=== PATIENT | male | born 1975 | race Caucasian/White ===

== ENCOUNTER 2017-04-11 22:49 | Emergency (ER) | payer SELFPAY ==
[2017-04-12 01:44] LABS: APPEARANCE,URINE CLEAR; BILIRUBIN,URINE NEGATIVE (NEGATIVE); GLUCOSE, URINE NEGATIVE (NEGATIVE); KETONES,URINE NEGATIVE (NEGATIVE); LEUKOCYTE ESTERASE,URINE NEGATIVE (NEGATIVE); NITRITE,URINE NEGATIVE (NEGATIVE); PROTEIN,URINE NEGATIVE (NEGATIVE); URINE SPECIFIC GRAVITY 1.006; UROBILINOGEN,URINE NEGATIVE mg/dL (<2.0)
[2017-04-12 01:45] LABS: ABSOLUTE EOSINOPHILS # (AUTO) 0.7 10^3/uL (0.0-0.6); ABSOLUTE LYMPHOCYTES (AUTO) 2.7 10^3/uL (0.5-4.7); ABSOLUTE MONOCYTES (AUTO) 0.8 10^3/uL (0.1-1.4); ABSOLUTE NEUT (AUTO) 6.1 10^3/uL (1.7-8.2); BASOPHILS % (AUTO) 0.3 % (0-2); EOSINOPHILS % (AUTO) 6.9 % (0-6); HEMOGLOBIN 15.4 g/dL (13.5-17.0); HGB HCT DIFFERENCE 1.2; LYMPHOCYTES % (AUTO) 26.1 % (13-45); MEAN CORPUSCULAR HGB CONC 34.1 g/dL (32.0-36.0); MEAN CORPUSCULAR VOLUME 88 fl (80-97); MONOCYTES % (AUTO) 7.9 % (3-13); RED BLOOD COUNT 5.12 10^6/uL (4.35-5.55); RED CELL DISTRIBUTION WIDTH 13.3 % (11.5-14.0); SEGMENTED NEUTROPHILS % (AUTO) 58.8 % (42-78); WHITE BLOOD COUNT 10.3 10^3/uL (4.0-10.5)
[2017-04-12 01:56] LABS: ALANINE AMINOTRANSFERASE 26 U/L (21-72); ALBUMIN 4.2 g/dL (3.5-5.0); ALKALINE PHOSPHATASE 89 U/L (38-126); ANION GAP 12 (5-19); ASPARTATE AMINO TRANSFERASE 18 U/L (17-59); BILIRUBIN,DIRECT 0.3 mg/dL (0.0-0.4); BILIRUBIN,TOTAL 0.5 mg/dL (0.2-1.3); BLOOD UREA NITROGEN 12 mg/dL (7-20); CALCIUM 9.4 mg/dL (8.4-10.2); CARBON DIOXIDE 26 mmol/L (22-30); CHLORIDE 104 mmol/L (98-107); CREATININE RESULT 0.93 mg/dL (0.52-1.25); GLUCOSE 118 mg/dL (75-110); POTASSIUM 3.8 mmol/L (3.6-5.0); SODIUM 141.7 mmol/L (137-145); TOTAL PROTEIN 6.8 g/dL (6.3-8.2)
[2017-04-12 02:04] LABS: ALCOHOL < 10 mg/dL (NONE DETECTED)
--- NOTE | 2017-04-12 02:33 | ER Document Report ---
ED General - General Chief Complaint: Drug Abuse Stated Complaint: POSSIBLE SUBSTANCE ABUSE Time Seen by Provider: 04/12/17 02:30 Mode of Arrival: Ambulatory Information source: Patient, Friend TRAVEL OUTSIDE OF THE [place] IN LAST 30 DAYS: No - HPI Notes: Patient here with significant other at bedside;patient says he is here because he has been and addict for 30 years and " I want to get off dope"; says he wants detox from cocaine; says he snorts, shoots and smokes it; says his last use was this am; says he also smokes marijuana and drinks etoh; says his last drink was approx 3 hours ago; says he wants detox; denies n/v/d/f; denies feeling shaky of having feeling of withdrawal. says he has been through detox x1 many years ago. hx of heroine use in the past as well. patient is calm, cooperative, good eye contact; speech is clear and gait steady; no tremors noted. Patient states he has been to Narcotics Anonymous back in October of this year. Patient reports he has been in correction multiple times for robbery, drug use possibly to a total of approximately 15 years of his life being incarcerated. Patient states that he is from his for the last 3 months. The is with him currently. The patient reports he is depressed and is contemplating suicide by hanging himself similar to the way his brother hung himself 3 years ago. The patient also reports homicidal ideation towards "people who have pissed him off" without giving specifics or names. - Related Data Allergies/Adverse Reactions: No Known Allergies Allergy (Verified 04/15/14 03:12) Past Medical History - General Information source: Patient - Social History Smoking Status: Current Every Day Smoker Smoking Education Provided: Yes Frequency of alcohol use: Occasional Drug Abuse: Cocaine, Heroin, Marijuana Lives with: Alone Family History: None Renal/ Medical History: Denies: Hx Peritoneal Dialysis - Immunizations Hx Diphtheria, Pertussis, Tetanus Vaccination: Yes Review of Systems - Review of Systems Notes: REVIEW OF SYSTEMS: CONSTITUTIONAL : Denies fever, chills, or sweats. Denies recent illness. EENT: Denies eye, ear, throat, or mouth pain or symptoms. Denies nasal or sinus congestion or discharge. Denies throat, tongue, or mouth swelling or difficulty swallowing. CARDIOVASCULAR: Denies chest pain. Denies palpitations or racing or irregular heart beat. Denies ankle edema. RESPIRATORY: Denies shortness of breath, difficulty breathing, or wheezing. Patient reports chronic cough and congestion nonproductive. GASTROINTESTINAL: Denies abdominal pain or distention. Denies nausea, vomiting , or diarrhea. Denies blood in vomitus, stools, or per rectum. Denies black, tarry stools. Denies constipation. GENITOURINARY: Denies difficulty urinating, painful urination, burning, frequency, blood in urine, or discharge. MUSCULOSKELETAL: Denies back or neck pain or stiffness. Denies joint pain or swelling. SKIN: Denies rash, lesions or sores. HEMATOLOGIC : Denies easy bruising or bleeding. LYMPHATIC: Denies swollen, enlarged glands. NEUROLOGICAL: Denies confusion or altered mental status. Denies passing out or loss of consciousness. Denies dizziness or lightheadedness. Denies headache. Denies weakness or paralysis or loss of use of either side. Denies problems with gait or speech. Denies sensory loss, numbness, or tingling. Denies seizures. PSYCHIATRIC: No hallucinations. ALL OTHER SYSTEMS REVIEWED AND NEGATIVE. Dictation was performed using [employer] voice recognition software Physical Exam - Notes Notes: PHYSICAL EXAMINATION: GENERAL: Well-appearing, well-nourished and in no acute distress. HEAD: Atraumatic, normocephalic. EYES: Pupils equal round and reactive to light, extraocular movements intact, sclera anicteric, conjunctiva are normal. ENT: Nares patent, oropharynx clear without exudates. Moist mucous membranes. Membranes clear NECK: Normal range of motion, supple without lymphadenopathy LUNGS: Coarse breath sounds noted with scant expiratory wheeze. HEART: Regular rate and rhythm without murmurs ABDOMEN: Soft, nontender, nondistended abdomen. No guarding, no rebound. No masses appreciated. Musculoskeletal: Normal range of motion, no pitting or edema. No cyanosis. NEUROLOGICAL: Cranial nerves grossly intact. Normal speech, normal gait. Normal sensory, motor exams PSYCH: Affect is flat. Patient reports symptoms of depression and suicidal ideation threatening to hang himself. Patient also has loose homicidal ideation. SKIN: Warm, Dry, normal turgor, no rashes or lesions noted. Course - Re-evaluation Re-evalutation: 04/12/17 06:39 Patient was medically cleared for psychiatric evaluation. He was given 1 mg of Ativan. Patient was noted to be wheezing on exam. With this chronic history of smoking, COPD was suspected. Patient was given an albuterol metered-dose inhaler. After being instructed in using the inhaler, repeat exam showed no wheezing. 04/12/17 06:40 - Laboratory Result Diagrams: 04/12/17 01:22 04/12/17 01:22 Laboratory results interpreted by me: 04/12/17 04/12/17 01:22 01:22 Eosinophils % 6.9 H Absolute Eosinophils 0.7 H Glucose 118 H Salicylates < 1.0 L Acetaminophen < 10 L - EKG Interpretation by Ca EKG shows normal: Sinus rhythm Rate: Normal Rhythm: NSR Additional EKG results interpreted by me: 04/12/17 06:40 EKG as interpreted by nc showed normal sinus rhythm heart rate of 85. There was no gross evidence for acute NE or ischemia identified. No other abnormality noted. Discharge - Discharge Clinical Impression: Polysubstance abuse, Tobacco abuse COPD (chronic obstructive pulmonary disease) Qualifiers: COPD type: unspecified COPD Qualified Code(s): J44.9 - Chronic obstructive pulmonary disease, unspecified Depression Qualifiers: Depression Type: unspecified Qualified Code(s): F32.9 - Major depressive disorder, single episode, unspecified Prescriptions: Lorazepam [Ativan 1 mg Tablet] 1 mg PO Q8HP PRN #10 tablet PRN Reason: Anxiety Albuterol Sulfate [Proair HFA Inhalation Aerosol 8.5 gm MDI] 2 puff IH Q4H PRN # 1 mdi PRN Reason:
[2017-04-12] MEDS ORDERED: LORAZEPAM 1 MG TABLET PO ONE (02:57)
[2017-04-12 03:02] LABS: URINE BARBITURATES SCREEN NEGATIVE; URINE METHADONE SCREEN NEGATIVE; URINE OPIATES LOW NEGATIVE; URINE PHENCYCLIDINE SCREEN NEGATIVE
[2017-04-12] MEDS: ALBUTEROL SULFATE HFA (90 MCG/PUFF) 8 GM MDI (1 MDI/ER DISP) IH PRN ×2 (03:15→10:00)
--- NOTE | 2017-04-12 03:55 | RADIOLOGY REPORT (SQ) ---
EXAM DESCRIPTION: CHEST PA/LAT COMPLETED DATE/TIME: 04/12/2017 3:37 am REASON FOR STUDY: cough, wheezing COMPARISON: None. EXAM PARAMETERS: NUMBER OF VIEWS: two views TECHNIQUE: Digital Frontal and Lateral radiographic views of the chest acquired. RADIATION DOSE: NA LIMITATIONS: none FINDINGS: LUNGS AND PLEURA: No opacities, masses or pneumothorax. No pleural effusion. MEDIASTINUM AND HILAR STRUCTURES: No masses or contour abnormalities. HEART AND VASCULAR STRUCTURES: Heart normal size. No evidence for failure. BONES: No acute findings. HARDWARE: None in the chest. OTHER: No other significant finding. IMPRESSION: NO SIGNIFICANT RADIOGRAPHIC FINDING IN THE CHEST. TECHNICAL DOCUMENTATION: JOB ID: [id number] [employer]- All Rights Reserved
--- NOTE | 2017-04-12 09:30 | PSYCHOLOGICAL NOTE ---
Psych Note - Psych Note Psych Note: 41-year-old male is here for help with drug addiction. No complaints this a.m. He is sleeping next to his significant other. He awakes easily and denies any concerns at this time. Heart-lung and skin exam are unremarkable.
--- NOTE | 2017-04-12 12:03 | EKG REPORT ---
SEVERITY:- NORMAL ECG - SINUS RHYTHM : Confirmed by: Gladys Peace MD 12-Apr-2017 12:02:44
--- NOTE | 2017-04-12 12:49 | ER Document Report ---
ED Psych Disorder / Suicide - General Mode of Arrival: Ambulatory Information source: Patient, Relative - signifiant other TRAVEL OUTSIDE OF THE [place] IN LAST 30 DAYS: No - HPI Patient complains to provider of: Aggression, Homicidal ideation, Suicidal ideation, Other - substance abuse; cocaine Normal mood: Yes Associated symptoms: Normal affect, Normal mood <ROSE WEAVER - Last Filed: 04/12/17 12:19> <ANTONELLA YI - Last Filed: 04/12/17 13:12> - General Chief Complaint: Drug Abuse Stated Complaint: POSSIBLE SUBSTANCE ABUSE Time Seen by Provider: 04/12/17 02:30 - HPI Notes: Patient here with significant other at bedside;patient says he is here because he has been and addict for 30 years and " I want to get off dope"; says he wants detox from cocaine; says he snorts, shoots and smokes it; says his last use was this am; says he also smokes marijuana and drinks etoh; says his last drink was approx 3 hours ago; says he wants detox Patient's , Vicenta, states patient has long history of substance abuse and the only time he was sober was when he was in penitentiary for a year. She continued to disclose patient has frequent thoughts of suicide and his anger is "off the charts." Patient states he would like to get help with his substance abuse. He disclose that he dies have thoughts of suicide and homicide that comes and goes. Patient states he does not have access to means because he is a convicted felon. Patient continued to disclose that he agrees inpatient substance abuse treatment might be better than outpatient. Patient is alert and orientated to person, place, time and circumstance. Patient denies current suicidal/homicidal ideation; patient endorses thoughts that come and go. Patient has abused cocaine for 30 years. Patient denies auditory and visual hallucinations; patient is not demonstrating any behaviour congruent with responding to internal stimuli. No delusions are noted. Thought process is organized and linear. Eye contact was well maintained. Intellectual abilities appear to be average range. attention and concentration are good. Insight, judgement, and impulse control are fair. 304.20 (F14.20) Cocaine abuse; severe Impression/plan: Patient is recommended for rescind of IVC and is considered psychiatrically cleared for discharge. Patient does not meet IVC criteria per [place] GS 122C. Patient has substance abuse going back 30 years and he would like assistance. Clinician provided patient and patient with substance abuse resources. Patient is recommended to receive services for substance abuse. Dr. Parsons was consulted on the care and management of this patient; attending physician is in agreement with recommendation and disposition. (ROSE WEAVER) - Related Data Allergies/Adverse Reactions: No Known Allergies Allergy (Verified 04/15/14 03:12) Past Medical History - General Information source: Patient - Social History Smoking Status: Current Every Day Smoker Frequency of alcohol use: Occasional Drug Abuse: Cocaine Lives with: Alone Family History: None Renal/ Medical History: Denies: Hx Peritoneal Dialysis - Immunizations Hx Diphtheria, Pertussis, Tetanus Vaccination: Yes <ROSE WEAVER - Last Filed: 04/12/17 12:19> Course - Laboratory Result Diagrams: 04/12/17 01:22 04/12/17 01:22 <ROSE WEAVER - Last Filed: 04/12/17 12:19> - Laboratory Result Diagrams: 04/12/17 01:22 04/12/17 01:22 <ANTONELLA YI - Last Filed: 04/12/17 13:12> - Re-evaluation Re-evalutation: 04/12/17 13:11 I reviewed patient's note from psychiatry. I agree with their assessment and plan. Of note patient has a prescription for Ativan on the chart but after further discussion with the patient he and psychiatry of decided that this will not be necessary. (ANTONELLA YI) - Vital Signs Vital signs: Temp Pulse Resp BP Pulse Ox 98.3 F 79 18 139/80 H 98 04/12/17 06:43 04/12/17 06:43 04/12/17 06:43 04/12/17 06:43 04/12/17 06:43 - Laboratory Laboratory results interpreted by me: 04/12/17 04/12/17 01:22 01:22 Eosinophils % 6.9 H Absolute Eosinophils 0.7 H Glucose 118 H Salicylates < 1.0 L Acetaminophen < 10 L Discharge <ROSE WEAVER - Last Filed: 04/12/17 12:19> <ANTONELLA YI - Last Filed: 04/12/17 13:12> - Discharge Clinical Impression: Polysubstance abuse, Tobacco abuse, Antisocial behavior COPD (chronic obstructive pulmonary disease) Qualifiers: COPD type: unspecified COPD Qualified Code(s): J44.9 - Chronic obstructive pulmonary disease, unspecified Clinical Impression: (Ruled Out): Depression Condition: Stable Disposition: HOME, SELF-CARE Additional Instructions: Cocaine Abuse Cocaine causes many dangerous medical problems. Problems can occur even with "usual" amounts. Cocaine affects judgement, creating a sense of invulnerability. Cocaine users often make bad decisions that seem "great" at the time. Most cocaine users eventually will be hurt by bad job performance, damaged personal relations, crime, and unsafe sexual practices. Toxic effects of cocaine can include seizures, hallucinations, delusions, high blood pressure, heart damage, or sudden . There's always the risk of a "bad batch." But heart attacks, brain hemorrhages, or cardiac arrest can occur unpredictably even with "normal" use. Injection of cocaine is risky for abscesses, endocarditis (heart infection) , pneumonia, and AIDS. Withdrawal from cocaine often causes anxiety and drug cravings. Some users become paranoid and psychotic. Many treatment programs are available, but you must make the decision to quit. Medication can be prescribed to control the symptoms of cocaine toxicity (beta blockers or benzodiazepines). Withdrawal symptoms may require tranquilizers. DEPRESSION: Your evaluation reveals that you have mental depression. While symptoms may be vague, they often include disturbance of sleep, fatigue, loss of appetite , and general loss of interest in life. While depression may be a side effect of drugs, or a reaction to a major change in your life, many cases have no known cause. If depression is acute, and related to a major loss in your life, you can expect it to clear completely with time. If you have been depressed a long time , are prone to repeated bouts of depression or low mood, or have been thinking of suicide, get help. Depression can be treated with anti-depressant medication and counselling. Long-term depression will often take a few weeks to clear, even with appropriate medication. Follow-up care is important. SUICIDAL IDEATION: Suicidal ideation is a common medical term for thoughts about suicide, which may be as detailed as a formulated plan, without the suicidal act itself. Although most people who undergo suicidal ideation do not commit suicide, some go on to make suicide attempts. The range of suicidal ideation varies greatly from fleeting to detailed planning, role playing, and unsuccessful attempts. While thoughts about suicide are common, most people do not carry out serious actions to commit suicide. Based upon your evaluation and discussion with you, we do not believe you are currently at risk to act upon your thoughts of suicide. You have agreed to return to the Emergency Department, at any time , if you feel inclined to act upon your suicidal thoughts. FOLLOW-UP CARE: Please follow up with your substance abuse provider, [facility], upon discharge. If you decide to seek inpatient substance abuse treatment please follow up with outpatient services upon discharge. If you experience worsening or a significant change in your symptoms, notify the physician immediately or return to the Emergency Department at any time for re-evaluation. Prescriptions: Lorazepam [Ativan 1 mg Tablet] 1 mg PO Q8HP PRN #10 tablet PRN Reason: Anxiety Albuterol Sulfate [Proair HFA Inhalation Aerosol 8.5 gm MDI] 2 puff IH Q4H PRN # 1 mdi PRN Reason: Referrals: [facility] [Outside] - 04/12/17
[2017-04-12 13:35] VITALS: BP 137/85
== END 2017-04-12 13:36 | disposition home or self-care (01) ==
LOC: ER 22:49
DX: F14.10 Cocaine abuse, uncomplicated (principal); F12.10 Cannabis abuse, uncomplicated; F32.9 Major depressive disorder, single episode, unspecified; R45.850 Homicidal ideations; R45.851 Suicidal ideations; J44.9 Chronic obstructive pulmonary disease, unspecified; F17.200 Nicotine dependence, unspecified, uncomplicated; Z71.6 Tobacco abuse counseling
CPT/HCPCS: 93005; 99285; 36415; 80307 ×4; 85025; 80053; 81001; 71020; 93010; J3490

== ENCOUNTER 2017-08-09 16:33 | Emergency (ER) | payer SELFPAY ==
[2017-08-09] MEDS ORDERED: KETOROLAC TROMETHAMINE 0.45% 4 DROP/0.4 ML DROPERETTE OS ONE (18:13)
--- NOTE | 2017-08-09 18:19 | ER Document Report ---
ED Eye Complaint - General Chief Complaint: Eye Problem Stated Complaint: LEFT EYE PAIN Time Seen by Provider: 08/09/17 17:56 Notes: 42 yo male c/o left eye irritation, redness and drainage x 2 days. noncontact wearer. no trauma. + blurred vision. no eye pain TRAVEL OUTSIDE OF THE [place] IN LAST 30 DAYS: No - HPI Eye location: Left Injury: No Quality of pain: No pain Contact lenses worn: No Associated symptoms: Itching, Redness, Orbital swelling, Foreign body sensation , Blurred vision - Related Data Allergies/Adverse Reactions: No Known Allergies Allergy (Verified 08/09/17 16:37) Past Medical History - General Information source: Patient - Social History Smoking Status: Current Every Day Smoker Frequency of alcohol use: None Drug Abuse: None Occupation: maintenance Family History: None Patient has suicidal ideation: No Patient has homicidal ideation: No - Medical History Medical History: Negative Pulmonary Medical History: Reports: Hx COPD Renal/ Medical History: Denies: Hx Peritoneal Dialysis - Immunizations Hx Diphtheria, Pertussis, Tetanus Vaccination: Yes Review of Systems - Review of Systems Constitutional: No symptoms reported EENT: See HPI Cardiovascular: No symptoms reported Respiratory: No symptoms reported Gastrointestinal: No symptoms reported Genitourinary: No symptoms reported Male Genitourinary: No symptoms reported Musculoskeletal: No symptoms reported Skin: No symptoms reported Hematologic/Lymphatic: No symptoms reported Neurological/Psychological: No symptoms reported Physical Exam - Vital signs Vitals: Temp Pulse Resp BP Pulse Ox 98.5 F 82 16 131/84 H 97 08/09/17 16:38 08/09/17 16:38 08/09/17 16:38 08/09/17 16:38 08/09/17 16:38 Interpretation: Normal - General General appearance: Appears well, Alert - HEENT Head: Normocephalic, Atraumatic Eyes: Periorbital edema - mild left Conjunctiva: Injected - left, Other - no flourescein uptake Extraocular movements intact: Yes Pupils: PERRL Tympanic membrane: Normal Mucous membranes: Normal, Moist Pharynx: Normal Neck: Normal, Supple - Respiratory Respiratory status: No respiratory distress Chest status: Nontender Breath sounds: Normal Chest palpation: Normal - Cardiovascular Rhythm: Regular Heart sounds: Normal auscultation Murmur: No - Abdominal Inspection: Normal Distension: No distension Bowel sounds: Normal Tenderness: Nontender Organomegaly: No organomegaly - Back Back: Normal, Nontender - Extremities General upper extremity: Normal inspection, Nontender, Normal color, Normal ROM , Normal temperature General lower extremity: Normal inspection, Nontender, Normal color, Normal ROM , Normal temperature, Normal weight bearing. No: Lauryn's sign - Neurological Neuro grossly intact: Yes Cognition: Normal Orientation: AAOx4 Valentin Coma Scale Eye Opening: Spontaneous Valentin Coma Scale Verbal: Oriented Foley Coma Scale Motor: Obeys Commands Valentin Coma Scale Total: 15 Speech: Normal Motor strength normal: LUE, RUE, LLE, RLE Sensory: Normal - Psychological Associated symptoms: Normal affect, Normal mood - Skin Skin Temperature: Warm Skin Moisture: Dry Skin Color: Normal Course - Re-evaluation Re-evalutation: 08/09/17 18:27 no flourescein uptake. will treat as conjunctivitis. pt stable for discharge - Vital Signs Vital signs: Temp Pulse Resp BP Pulse Ox 98.5 F 82 16 131/84 H 97 08/09/17 16:38 08/09/17 16:38 08/09/17 16:38 08/09/17 16:38 08/09/17 16:38 Procedures - Eye Procedure Left Eye Irrigated w/ Saline (ccs): 20 Foreign body removal: Left Alcaine Drops Administered: Yes Acular drops administered: Left Fluorescein applied: Left Slit lamp used: No Discharge - Discharge Clinical Impression: Conjunctivitis Qualifiers: Conjunctivitis type: acute Laterality: left Condition: Stable Disposition: HOME, SELF-CARE Instructions: Conjunctivitis ([facility]), Eyedrop Use ([facility]) Additional Instructions: Use antibiotic drops as prescribed cool compresses to eyes follow up with opthomology if not significantly improved in 24h Prescriptions: Ketorolac Tromethamine [Acular] 1 drop OD Q6H PRN #5 ml PRN Reason: Polymyxin B Sulf/Trimethoprim [Polytrim Eye Drops] 1 drop OS Q4 #1 bottle
[2017-08-09 18:57] VITALS: BP 129/76
== END 2017-08-09 18:57 | disposition home or self-care (01) ==
LOC: ER 16:33
DX: H10.32 Unspecified acute conjunctivitis, left eye (principal); J44.9 Chronic obstructive pulmonary disease, unspecified; F17.200 Nicotine dependence, unspecified, uncomplicated
CPT/HCPCS: 99283